=== PATIENT | female | born 1955 | race African-American/Black ===

== ENCOUNTER 2017-08-20 22:08 | Emergency (ER) | payer BC ==
[~2017-08-20] VITALS: Ht 167.6 cm; Wt 109.3 kg
[~2017-08-20 22:08] MED LIST: BACTRIM DS TAB1 EAC1 ORAL; BENADRYL ALLERG25 M1 PO; BENADRYL25 MG ORAL; CARTIA XT240 MG ORAL; IBUPROFEN600 MG PO; NORCO 5-325 TA1 EACH ORAL; SYNTHROID100 MCG ORAL; SYNTHROID150 MCG ORAL; TRIAMTERENE-HC1 EAC7 PO
[2017-08-20 22:30] VITALS: BP 130/65
[2017-08-20] MEDS ORDERED: ASPIR 8181 MG ORAL (22:34)
[2017-08-20] MEDS ORDERED: SYNTHROID100 MCG ORAL (22:34)
[2017-08-20] MEDS ORDERED: DIGOXIN125 MCG ORAL (22:34)
[2017-08-20] MEDS ORDERED: FUROSEMIDE40 MG ORAL (22:34)
[2017-08-20] MEDS ORDERED: CARVEDILOL12.5 MG ORAL (22:34)
[2017-08-20] MEDS ORDERED: ATORVASTATIN CA10 MG ORAL (22:34)
[2017-08-20] MEDS ORDERED: SPIRONOLACTONE25 MG ORAL (22:34)
[2017-08-20] MEDS ORDERED: LISINOPRIL20 MG ORAL (22:34)
[2017-08-20 23:04] LABS: APPEARANCE,URINE CLEAR; BASOPHILS % (AUTO) 1.7 % (0.0-2.0); BILIRUBIN, URINE NEGATIVE (NEGATIVE); EOSINOPHILS % (AUTO) 1.5 % (0.0-3.0); GLUCOSE, URINE (UA) NEGATIVE (NEGATIVE); HEMATOCRIT 39.4 % (37.0-47.0); HEMOGLOBIN 13.1 G/DL (12.0-16.0); KETONES,URINE NEGATIVE (NEGATIVE); LEUKOCYTE ESTERASE ,URINE 1+ (NEGATIVE); LYMPHOCYTES % (AUTO) 42.6 % (20.0-45.0); MEAN CORPUSCULAR VOLUME 83 FL (80-99); MONOCYTES % (AUTO) 7.7 % (1.0-10.0); NEUTROPHILS % (AUTO) 46.5 % (45.0-75.0); NITRITE,URINE NEGATIVE (NEGATIVE); PH,URINE 5 (4.5-8.0); PLATELET COUNT 204 K/UL (150-450); PROTEIN,URINE NEGATIVE (NEGATIVE); RED BLOOD COUNT 4.76 M/UL (4.20-5.40); RED CELL DISTRIBUTION WIDTH 12.9 % (11.6-14.8); UROBILINOGEN,URINE NORMAL MG/DL (0.0-1.0)
[2017-08-20 23:05] LABS: COLOR,URINE YELLOW
[2017-08-20 23:17] LABS: ANION GAP 8 mmol/L (5-15); BLOOD UREA NITROGEN 19 mg/dL (7-18); CALCIUM 8.9 MG/DL (8.5-10.1); CARBON DIOXIDE 30 MMOL/L (21-32); CHLORIDE 99 MMOL/L (98-107); CREATININE 1.4 MG/DL (0.55-1.30); SODIUM 136 MMOL/L (136-145)
[2017-08-21] MEDS ORDERED: GUAIFENESIN-CO118 M1 ORAL (00:01)
[2017-08-21] MEDS ORDERED: FLONASE ALLERG9.9 ML NS (00:01)
--- NOTE | 2017-08-21 00:01 | Emergency Room Report ---
History of Present Illness General Chief Complaint: Syncope Source: Patient Present Illness HPI This is a 62-year-old female with a history of high blood pressure and CHF. She said her echocardiogram done injuring her of this year showed ejection fraction of 45-50%. Resents with chief complaint of cough and congestion. His been ongoing for about 4 days. 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 She said the labor supervisor was talking about letting the whole department go. She was anxious and said that she felt faint. They took her to the [facility] and called 911. Her blood pressure is 170 /101. EKG showed left bundle branch block and she was told to come here. Patient said she fell better now. No fever chills but no nausea no vomiting. Nose [place] stuffy. Denies any other complaint. No chest pain. Allergies: Coded Allergies: NITROFURANTOIN (Unverified Allergy, Unknown, 08/20/17) Patient History Past Medical History: see triage record, old chart reviewed, HTN, CHF Past Surgical History: other Pertinent Family History: none Social History: Denies: smoking Last Menstrual Period: n/a Now: No Immunizations: other Reviewed Nursing Documentation: PMH: Agreed; PSxH: Agreed Nursing Documentation-PMH Past Medical History: No History, Except For Hx Cardiac Problems: Yes - chf, hyperthyroidism Hx Hypertension: Yes Hx Cancer: No Hx Gastrointestinal Problems: No Hx Neurological Problems: No - sciatica Review of Systems Eye: Denies: eye pain, blurred vision ENT: Denies: ear pain, nose congestion, throat swelling Respiratory: Reports: cough, shortness of breath Cardiovascular: Denies: chest pain, palpitations Gastrointestinal: Denies: abdominal pain, diarrhea, nausea, vomiting Musculoskeletal: Denies: back pain, joint pain Skin: Denies: rash Neurological: Denies: headache, numbness Endocrine: Denies: increased thirst, increased urine Hematologic/Lymphatic: Denies: easy bruising All Other Systems: negative except mentioned in HPI Physical Exam Vital Signs Date Time Temp Pulse Resp B/P (MAP) Pulse Ox O2 Delivery O2 Flow Rate FiO2 08/20/17 22:10 98.2 87 16 127/73 95 Room Air 98.2 vitals normal Sp02 EP Interpretation: reviewed, normal General Appearance: well appearing, no apparent distress, alert Head: normocephalic, atraumatic Eyes: bilateral eye PERRL, bilateral eye EOMI ENT: hearing grossly normal, normal pharynx Neck: full range of motion, supple, no meningismus Respiratory: chest non-tender, lungs clear, normal breath sounds Cardiovascular #1: regular rate, rhythm, no murmur Gastrointestinal: normal bowel sounds, non tender, no mass, no organomegaly, no bruit, non-distended Musculoskeletal: back normal, gait/station normal, normal range of motion Psychiatric: mood/affect normal Skin: warm/dry Medical Decision Making Diagnostic Impression: Primary Impression: Upper respiratory infection Qualified Codes: J06.9 - Acute upper respiratory infection, unspecified Additional Impression: Acute stress reaction ER Course Patient presents with upper respiratory or infection. Most likely viral in nature. No evidence of ACS, PE, dissection or CHF. Lungs are clear. EKG is unchanged. We'll discharge home. Lab Results Impression labs unremarkable EKG Diagnostic Results Rate: normal Rhythm: NSR ST Segments: no acute changes Other Impression left bundle branch block Rhythm Strip Diag. Results Rhythm Strip Time: 00:00 EP Interpretation: yes Rate: 64 Rhythm: NSR, no PVC's, no ectopy Chest X-Ray Diagnostic Results Chest X-Ray Diagnostic Results : Chest X-Ray Ordered: Yes # of Views/Limited/Complete: 1 View Indication: Shortness of Breath EP Interpretation: Yes Interpretation: no consolidation, no effusion, no pneumothorax, no acute cardiopulmonary disease, other - Cardiomegaly Impression: No acute disease Electronically Signed by: Jack Christian MD Last Vital Signs Date Time Temp Pulse Resp B/P (MAP) Pulse Ox O2 Delivery O2 Flow Rate FiO2 08/20/17 22:30 75 16 130/65 98 Room Air 08/20/17 22:10 98.2 98.2 Status: improved Disposition: HOME, SELF-CARE Condition: Stable Scripts Fluticasone Propionate (Flonase Allergy Relief) 9.9 Ml [place].susp 9.9 ML NS BID, #1 UNIT Prov: JACK CHRISTIAN M.D. 08/21/17 Guaifenesin/Codeine Phos* (ROBITUSSIN AC*) 118 Ml Liquid 1 TSP ORAL Q6H PRN for For Cough, #118 ML 0 Refills Prov: JACK CHRISTIAN M.D. 5/25/18 Referrals: NON PHYSICIAN (PCP) Additional Instructions: Follow-up with your Dr. in 2-3 days of not better. Return of worse. JACK CHRISTIAN M.D. August 21, 2017 00:01
[2017-08-21 00:15] VITALS: BP 122/63
--- NOTE | 2017-08-21 10:05 | Diagnostic Imaging Report ---
Indication: Shortness of breath Technique: One view of the chest Comparison: 10/13/2014 Findings: The heart size is upper limits of normal. Lungs and pleural spaces are clear. There are degenerative changes of the thoracic spine. No significant interim change Impression: No acute process
--- NOTE | 2017-08-21 22:34 | Cardiology Report ---
APPROVED REPORT EKG Measurement Heart [id number] Normal sinus rhythm Left axis deviation Left bundle branch block Abnormal ECG
== END 2017-08-21 00:15 | disposition home or self-care (01) ==
LOC: EMR 22:36
DX: J06.9 Acute upper respiratory infection, unspecified (principal); F43.0 Acute stress reaction; I50.9 Heart failure, unspecified; E05.90 Thyrotoxicosis, unspecified without thyrotoxic crisis or storm; Z88.8 Allergy status to other drugs, medicaments and biological substances
CPT/HCPCS: 36415; 71045; 80048; 81003; 84484; 85025; 87086; 93005; 99284

== ENCOUNTER 2018-05-27 02:25 | Emergency (ER) | payer BC ==
[~2018-05-27] VITALS: Ht 167.6 cm; Wt 101.2 kg
[~2018-05-27 02:25] MED LIST changes: +ASPIR 8181 MG ORAL; +ATORVASTATIN CA10 MG ORAL; +CARVEDILOL12.5 MG ORAL; +DIGOXIN125 MCG ORAL; +FLONASE ALLERG9.9 ML NS; +FUROSEMIDE40 MG ORAL; +GUAIFENESIN-CO118 M1 ORAL; +LISINOPRIL20 MG ORAL; +SPIRONOLACTONE25 MG ORAL
[2018-05-27 02:50] VITALS: BP 141/82
--- NOTE | 2018-05-27 02:50 | NUR ---
ED Nurse Note: Pt c/o stomach aching for 3 days, nausea and diarrhea (waterly 5 times tonight). Pt also has sore throat and general muscle aching.
[2018-05-27 03:26] LABS: BASOPHILS % (AUTO) 2.1 % (0.0-2.0); EOSINOPHILS % (AUTO) 0.8 % (0.0-3.0); HEMATOCRIT 40.2 % (37.0-47.0); HEMOGLOBIN 12.8 G/DL (12.0-16.0); LYMPHOCYTES % (AUTO) 32.5 % (20.0-45.0); MEAN CORPUSCULAR VOLUME 81 FL (80-99); MONOCYTES % (AUTO) 6.7 % (1.0-10.0); NEUTROPHILS % (AUTO) 57.9 % (45.0-75.0); PLATELET COUNT 211 K/UL (150-450); RED BLOOD COUNT 4.94 M/UL (4.20-5.40); RED CELL DISTRIBUTION WIDTH 12.5 % (11.6-14.8)
[2018-05-27 03:30] LABS: APPEARANCE,URINE CLEAR; BILIRUBIN, URINE NEGATIVE (NEGATIVE); GLUCOSE, URINE (UA) NEGATIVE (NEGATIVE); KETONES,URINE NEGATIVE (NEGATIVE); LEUKOCYTE ESTERASE ,URINE 2+ (NEGATIVE); NITRITE,URINE NEGATIVE (NEGATIVE); PH,URINE 7 (4.5-8.0); PROTEIN,URINE NEGATIVE (NEGATIVE); UROBILINOGEN,URINE 4 MG/DL (0.0-1.0)
[2018-05-27 03:33] LABS: COLOR,URINE YELLOW
[2018-05-27 03:41] LABS: ANION GAP 6 mmol/L (5-15); BLOOD UREA NITROGEN 12 mg/dL (7-18); CALCIUM 9.1 MG/DL (8.5-10.1); CARBON DIOXIDE 29 MMOL/L (21-32); CHLORIDE 103 MMOL/L (98-107); POTASSIUM 3.7 MMOL/L (3.5-5.1); SODIUM 138 MMOL/L (136-145)
[2018-05-27 03:53] LABS: ALANINE AMINOTRANSFERASE 35 U/L (12-78); ALBUMIN 3.6 G/DL (3.4-5.0); ALBUMIN/GLOBULIN RATIO 0.9 (1.0-2.7); ALKALINE PHOSPHATASE 86 U/L (46-116); ASPARTATE AMINO TRANSFERASE 13 U/L (15-37); BILIRUBIN,TOTAL 0.5 MG/DL (0.2-1.0); CREATINE KINASE 113 U/L (26-308)
[2018-05-27 04:14] VITALS: BP 134/62
[2018-05-27] MEDS ORDERED: Levofloxacin 500mg tab ORAL ONE (04:30)
--- NOTE | 2018-05-27 04:35 | Emergency Room Report ---
History of Present Illness General Chief Complaint: Flu Like Symptoms Source: Patient Present Illness HPI Patient presents with vomiting and loose stools and body aches. This has been going on a few days. She had a flu vaccination last year. She denies any sore throat or productive cough at the moment. She denies edema or calf pain. She rates the pain 7/10, muscle aches nonradiating. The patient has a history of congestive heart failure. She feels like she is dehydrated at this time and is requesting an IV. She denies any hematemesis, melena or dysuria. She only takes water pills when she has edema. She denies any chest pain per se. 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 Menstrual Period: Stop 6 years ago Now: No Reviewed Nursing Documentation: PMH: Agreed; PSxH: Agreed Nursing Documentation-PMH Hx Cardiac Problems: Yes - chf, hyperthyroidism Hx Hypertension: Yes Hx Cancer: No Hx Gastrointestinal Problems: No Hx Neurological Problems: No - sciatica Review of Systems All Other Systems: negative except mentioned in HPI Physical Exam Vital Signs Date Time Temp Pulse Resp B/P (MAP) Pulse Ox O2 Delivery O2 Flow Rate FiO2 05/27/18 02:33 98.2 80 18 141/82 98 Room Air Sp02 EP Interpretation: reviewed, normal General Appearance: well appearing, no apparent distress, GCS 15 Head: normocephalic Eyes: bilateral eye normal inspection, bilateral eye PERRL ENT: moist mucus membranes Neck: supple Respiratory: lungs clear, normal breath sounds Cardiovascular #1: regular rate, rhythm, no edema Cardiovascular #2: 2+ radial (R) Gastrointestinal: normal inspection, normal bowel sounds, non tender, no mass, non-distended Musculoskeletal: back normal, gait/station normal, normal range of motion, no calf tenderness Neurologic: alert, oriented x3, grossly normal Psychiatric: mood/affect normal Skin: normal inspection, warm/dry Medical Decision Making Diagnostic Impression: Primary Impression: Nausea vomiting and diarrhea Additional Impression: UTI (urinary tract infection) Qualified Codes: N30.00 - Acute cystitis without hematuria ER Course Patient presents with vomiting muscle aches and diarrhea. Differential includes gastroenteritis, viral syndrome, influenza amongst others. The patient feels dehydrated and will receive IV hydration at this time even though she has a history of congestive heart failure. EKG will be obtained, chest x- ray influenza titer and labs. In addition the patient will be treated with Zofran and Tylenol. EKG with sinus rhythm rate of 80 left atrial enlargement left axis deviation and left ventricular hypertrophy and left bundle-branch block. Labs unremarkable. Chest x-ray without infiltrate slightly large heart. Patient is improved with treatment. There is evidence of pyuria. The patient given Levaquin and she is allergic to Macrobid. Patient advised to follow-up with her doctor. But she is improved. Patient stable for outpatient observation and treatment Laboratory Tests Test 05/27/18 03:06 White Blood Count 5.0 K/UL (4.8-10.8) Red Blood Count 4.94 M/UL (4.20-5.40) Hemoglobin 12.8 G/DL (12.0-16.0) Hematocrit 40.2 % (37.0-47.0) Mean Corpuscular Volume 81 FL (80-99) Mean Corpuscular Hemoglobin 26.0 PG (27.0-31.0) L Mean Corpuscular Hemoglobin Concent 32.0 G/DL (32.0-36.0) Red Cell Distribution Width 12.5 % (11.6-14.8) Platelet Count 211 K/UL (150-450) Mean Platelet Volume 7.0 FL (6.5-10.1) Neutrophils (%) (Auto) 57.9 % (45.0-75.0) Lymphocytes (%) (Auto) 32.5 % (20.0-45.0) Monocytes (%) (Auto) 6.7 % (1.0-10.0) Eosinophils (%) (Auto) 0.8 % (0.0-3.0) Basophils (%) (Auto) 2.1 % (0.0-2.0) H Urine Color Yellow Urine Appearance Clear Urine pH 7 (4.5-8.0) Urine Specific [place] 1.015 (1.005-1.035) Urine Protein Negative (NEGATIVE) Urine Glucose (UA) Negative (NEGATIVE) Urine Ketones Negative (NEGATIVE) Urine Blood Negative (NEGATIVE) Urine Nitrite Negative (NEGATIVE) Urine Bilirubin Negative (NEGATIVE) Urine Urobilinogen 4 MG/DL (0.0-1.0) H Urine Leukocyte Esterase 2+ (NEGATIVE) H Urine RBC 2-4 /HPF (0 - 2) H Urine WBC 5-10 /HPF (0 - 2) H Urine Squamous Epithelial Cells Many /LPF (NONE/OCC) H Urine Bacteria Few /HPF (NONE) Sodium Level 138 MMOL/L (136-145) Potassium Level 3.7 MMOL/L (3.5-5.1) Chloride Level 103 MMOL/L (98-107) Carbon Dioxide Level 29 MMOL/L (21-32) Anion Gap 6 mmol/L (5-15) Blood Urea Nitrogen 12 mg/dL (7-18) Creatinine 1.0 MG/DL (0.55-1.30) Estimate Glomerular Filtration Rate > 60 mL/min (>60) Glucose Level 106 MG/DL (74-106) Calcium Level 9.1 MG/DL (8.5-10.1) Total Bilirubin 0.5 MG/DL (0.2-1.0) Aspartate Amino Transferase (AST) 13 U/L (15-37) L Alanine Aminotransferase (ALT) 35 U/L (12-78) Alkaline Phosphatase 86 U/L (46-116) Total Creatine Kinase 113 U/L (26-308) Troponin I 0.005 ng/mL (0.000-0.056) Pro-B-Type Natriuretic Peptide 413 pg/mL (0-125) H Total Protein 7.8 G/DL (6.4-8.2) Albumin 3.6 G/DL (3.4-5.0) Globulin 4.2 g/dL Albumin/Globulin Ratio 0.9 (1.0-2.7) L Lipase 145 U/L (73-393) Microbiology Date/Time Source Procedure Growth Status 05/27/18 03:06 Nasal Nares Influenza Types A,B Antigen (AMY) - Final Complete EKG Diagnostic Results Rate: normal Rhythm: NSR ST Segments: no acute changes - LAE, LAD, LBBB Rhythm Strip Diag. Results EP Interpretation: yes Rhythm: NSR, no PVC's, no ectopy Chest X-Ray Diagnostic Results Chest X-Ray Diagnostic Results : Chest X-Ray Ordered: Yes # of Views/Limited/Complete: 1 View Indication: Chest Pain Interpretation: no consolidation, no effusion, no pneumothorax, other - Cardiomegaly Impression: Other Electronically Signed by: Electronically signed by Casimiro De Jesus MD Last Vital Signs Date Time Temp Pulse Resp B/P (MAP) Pulse Ox O2 Delivery O2 Flow Rate FiO2 05/27/18 04:52 98.3 78 20 134/62 100 Room Air Status: improved Disposition: HOME, SELF-CARE Condition: Improved Scripts Levofloxacin* (LEVAQUIN*) 500 Mg Tablet 500 MG ORAL DAILY, #7 TAB Prov: Casimiro De Jesus MD 05/27/18 Acetaminophen (Tylenol) 325 Mg Tablet 650 MG ORAL Q6H PRN for Prn Pain/Headache/Temp > 101, #20 TAB 0 Refills Prov: Casimiro De Jesus MD 05/27/18 Ondansetron Odt* (ZOFRAN ODT*) 4 Mg Tab.rapdis 4 MG BC EVERY 8 HOURS, #6 TAB 1 Refill Prov: Casimiro De Jessu MD 05/27/18 Casimiro De Jesus MD May 27, 2018 04:35
[2018-05-27] MEDS ORDERED: LEVAQUIN500 MG ORAL (04:38)
[2018-05-27] MEDS ORDERED: TYLENOL325 MG ORAL (04:38)
[2018-05-27] MEDS ORDERED: ONDANSETRON ODT4 MG BC (04:38)
[2018-05-27 04:52] VITALS: BP 134/62
--- NOTE | 2018-05-27 04:52 | NUR ---
ER DISCHARGE NOTE: Patient is cleared to be discharged per ERMD, pt is aox4, on room air, with stable vital signs. pt was given dc and prescription instructions, pt was able to verbalize understanding, pt id band and iv site removed without complications. pt is able to ambulate with steady gait. pt took all belongings.
--- NOTE | 2018-05-27 11:17 | Diagnostic Imaging Report ---
Indication: Chest pain Technique: One view of the chest Comparison: 08/20/2017 Findings: The heart is borderline enlarged. Equivocal minimal interstitial congestion. Pleural spaces are clear. No focal airspace consolidation Impression: Borderline cardiomegaly Equivocal minimal interstitial congestion. Correlate with clinical findings
== END 2018-05-27 04:52 | disposition home or self-care (01) ==
LOC: EMR 02:58
DX: R11.2 Nausea with vomiting, unspecified (principal); R19.7 Diarrhea, unspecified; N39.0 Urinary tract infection, site not specified; E05.90 Thyrotoxicosis, unspecified without thyrotoxic crisis or storm; I11.0 Hypertensive heart disease with heart failure; I50.9 Heart failure, unspecified
CPT/HCPCS: 36415; 71045; 80053; 80162; 81003; 82550; 83690; 83880; 84484; 85025; 86710; 93005; 96374; 99284; J2405; J7040

== ENCOUNTER 2018-09-22 00:11 | Emergency (ER) | payer BC ==
[~2018-09-22] VITALS: Ht 165.1 cm; Wt 103.4 kg
[~2018-09-22 00:11] MED LIST changes: +LEVAQUIN500 MG ORAL; +ONDANSETRON ODT4 MG BC; +TYLENOL325 MG ORAL
--- NOTE | 2018-09-22 00:16 | NUR ---
ED Nurse Note: Pt arrived ambulatory into ED for complaint of chest papitations. Denies chest pain. Pt showing no signs of acute distress. VSS.
[2018-09-22 00:20] VITALS: BP 151/72
[2018-09-22] MEDS ORDERED: LEVOTHYROXINE125 MCG ORAL (00:27)
--- NOTE | 2018-09-22 00:39 | Emergency Room Report ---
History of Present Illness General Chief Complaint: Palpitations Source: Patient Present Illness [facility] This is a 63-year-old female with history of CHF, hypertension. Last echocardiogram was a year ago. Ejection fraction was around 45-50% per patient. She presents with chief complaint of palpitation and fluttering. Been on and off today. No fever chills but no nausea no vomiting. A little short of breath. She is requesting another echocardiogram and chest x-ray. Denies any chest pain. Nothing made it better. Nothing made it worse. Allergies: Coded Allergies: NITROFURANTOIN (Unverified Allergy, Unknown, 08/20/17) Patient History Past Medical History: see triage record, old chart reviewed, HTN, CHF Past Surgical History: other Pertinent Family History: none Social History: Denies: smoking Last Menstrual Period: 11 YEARS AGO Now: No Immunizations: other Reviewed Nursing Documentation: PMH: Agreed; PSxH: Agreed Nursing Documentation-PMH Past Medical History: No History, Except For Hx Hypertension: Yes Hx Cancer: No Hx Gastrointestinal Problems: No Hx Neurological Problems: No - sciatica Review of Systems Eye: Denies: eye pain, blurred vision ENT: Denies: ear pain, nose congestion, throat swelling Respiratory: Denies: cough, shortness of breath Cardiovascular: Reports: palpitations; Denies: chest pain Gastrointestinal: Denies: abdominal pain, diarrhea, nausea, vomiting Musculoskeletal: Denies: back pain, joint pain Skin: Denies: rash Neurological: Denies: headache, numbness Endocrine: Denies: increased thirst, increased urine Hematologic/Lymphatic: Denies: easy bruising All Other Systems: negative except mentioned in HPI Physical Exam Vital Signs Date Time Temp Pulse Resp B/P (MAP) Pulse Ox O2 Delivery O2 Flow Rate FiO2 09/22/18 00:15 98.2 71 15 151/72 (98) 96 Room Air Vitals with high blood pressure Sp02 EP Interpretation: reviewed, normal General Appearance: well appearing, no apparent distress, alert Head: normocephalic, atraumatic Eyes: bilateral eye PERRL, bilateral eye EOMI ENT: hearing grossly normal, normal pharynx Neck: full range of motion, supple, no meningismus Respiratory: chest non-tender, lungs clear, normal breath sounds Cardiovascular #1: regular rate, rhythm, no murmur Gastrointestinal: normal bowel sounds, non tender, no mass, no organomegaly, no bruit, non-distended Musculoskeletal: back normal, gait/station normal, normal range of motion Neurologic: alert, oriented x3 Psychiatric: anxious Skin: warm/dry Medical Decision Making Diagnostic Impression: Primary Impression: Palpitations Additional Impression: UTI (urinary tract infection) Qualified Codes: N30.00 - Acute cystitis without hematuria ER Course Patient presents with palpitation. There was occasional PVC on the monitor. Otherwise patient has been in sinus and there is no runs of A. fib. Labs unremarkable. No evidence of ACS, PE, CHF to name a few. Thyroid function normal. Suspect this is more anxiety related even though patient denied it. Will discharge home. EKG Diagnostic Results Rate: normal Rhythm: NSR ST Segments: other - LBBB Rhythm Strip Diag. Results EP Interpretation: yes Rate: 70 Rhythm: NSR, no PVC's, no ectopy Chest X-Ray Diagnostic Results Chest X-Ray Diagnostic Results : Chest X-Ray Ordered: Yes # of Views/Limited/Complete: 1 View Indication: Shortness of Breath EP Interpretation: Yes Interpretation: no consolidation, no effusion, no pneumothorax, no acute cardiopulmonary disease Impression: No acute disease Electronically Signed by: Jack Christian MD Last Vital Signs Date Time Temp Pulse Resp B/P (MAP) Pulse Ox O2 Delivery O2 Flow Rate FiO2 09/22/18 00:15 98.2 71 15 151/72 (98) 96 Room Air Status: improved Disposition: HOME, SELF-CARE Condition: Stable Scripts Cephalexin* (KEFLEX*) 500 Mg Capsule 500 MG ORAL TID, #21 CAP Prov: Jack Christian MD 09/22/18 Referrals: NON PHYSICIAN (PCP) Patient Instructions: Palpitations Additional Instructions: Follow-up your doctor in 7 days. If continue with palpitation, you may need a referral to see a warehouse unloader for Holter monitor. Return if symptoms worsen. Jack Christian MD Sep 22, 2018 00:39
[2018-09-22 00:59] LABS: EOSINOPHILS % (AUTO) 1.7 % (0.0-3.0); HEMATOCRIT 40.8 % (37.0-47.0); HEMOGLOBIN 13.6 G/DL (12.0-16.0); LYMPHOCYTES % (AUTO) 37.3 % (20.0-45.0); MEAN CORPUSCULAR VOLUME 80 FL (80-99); MONOCYTES % (AUTO) 5.7 % (1.0-10.0); NEUTROPHILS % (AUTO) 54.4 % (45.0-75.0); PLATELET COUNT 249 K/UL (150-450); RED BLOOD COUNT 5.13 M/UL (4.20-5.40); WHITE BLOOD COUNT 8.5 K/UL (4.8-10.8)
[2018-09-22 01:02] LABS: BILIRUBIN, URINE NEGATIVE (NEGATIVE); COLOR,URINE PALE YELLOW; GLUCOSE, URINE (UA) NEGATIVE (NEGATIVE); KETONES,URINE NEGATIVE (NEGATIVE); LEUKOCYTE ESTERASE ,URINE 2+ (NEGATIVE); NITRITE,URINE NEGATIVE (NEGATIVE); PH,URINE 5 (4.5-8.0); PROTEIN,URINE NEGATIVE (NEGATIVE); UROBILINOGEN,URINE NORMAL MG/DL (0.0-1.0)
[2018-09-22 01:12] LABS: BLOOD UREA NITROGEN 28 mg/dL (7-18); SODIUM 140 MMOL/L (136-145)
[2018-09-22 01:14] LABS: ANION GAP 8 mmol/L (5-15); CALCIUM 9.3 MG/DL (8.5-10.1); CARBON DIOXIDE 29 MMOL/L (21-32); CHLORIDE 103 MMOL/L (98-107); CREATININE 1.1 MG/DL (0.55-1.30); POTASSIUM 4.2 MMOL/L (3.5-5.1)
[2018-09-22 01:18] LABS: APPEARANCE,URINE SLIGHTLY CLOUDY
[2018-09-22 01:26] LABS: ALANINE AMINOTRANSFERASE 25 U/L (12-78); ALBUMIN 4.2 G/DL (3.4-5.0); ALKALINE PHOSPHATASE 96 U/L (46-116); ASPARTATE AMINO TRANSFERASE 19 U/L (15-37); BILIRUBIN,TOTAL 0.2 MG/DL (0.2-1.0); CKMB 4.9 NG/ML (0.0-3.6); CREATINE KINASE 199 U/L (26-308)
[2018-09-22] MEDS ORDERED: cefTRIAXone 1 GM in NS 55 ML IVPB ONE (01:30)
[2018-09-22] MEDS ORDERED: CEPHALEXIN500 MG ORAL (02:02)
[2018-09-22 02:15] VITALS: BP 156/96
--- NOTE | 2018-09-22 02:15 | NUR ---
ED Nurse Note: Pt cleared by ERMD, pt A/Ox4, VSS, showing no signs of acute distress. Discharge paperwork and prescriptions provided. Pt verbalized understanding of all instructions. All belongings taken with pt. Pt ambulated out of ED with steady gait, accompanied by . ID band and IV removed.
--- NOTE | 2018-09-22 12:17 | Diagnostic Imaging Report ---
Indication: Dyspnea Comparison: 05/27/2018 A single view chest radiograph was obtained. Findings: Bones are osteopenic. Cardiomegaly is present. Lungs are clear with relatively normal pulmonary vascularity. No definite infiltrate is identified. IMPRESSION: No acute disease
--- NOTE | 2018-09-24 12:17 | Cardiology Report ---
APPROVED REPORT EKG Measurement Heart [id number] [place] [id number] Sinus rhythm with occasional premature ventricular complexes Left axis deviation Left bundle branch block Abnormal ECG
== END 2018-09-22 02:15 | disposition home or self-care (01) ==
LOC: EMR 00:32
DX: R00.2 Palpitations (principal); N30.00 Acute cystitis without hematuria; I11.0 Hypertensive heart disease with heart failure; I50.9 Heart failure, unspecified; Z88.8 Allergy status to other drugs, medicaments and biological substances; I44.7 Left bundle-branch block, unspecified
CPT/HCPCS: 36415; 71045; 80053; 81003; 82550; 82553; 83880; 84439; 84443; 84484; 85025; 87086; 93005; 96365; 99284; J0696